=== PATIENT | male | born 2005 | race American Indian/Alaskan Native ===

== ENCOUNTER 2024-09-21 21:28 | Emergency (ER) | payer SELFPAY ==
[~2024-09-21] VITALS: Ht 172.7 cm; Wt 55.0 kg
[2024-09-21 21:35] VITALS: O2SAT 100
[2024-09-21 21:41] VITALS: TEMP 37; O2SAT 100
[2024-09-21 23:01] VITALS: BP 107/59; PULSE 60; RESP 16
[2024-09-21] MEDS: KETOROLAC 30MG/ML VIAL IM ONE (23:01)
[2024-09-22] MEDS ORDERED: IBUP-2029 MT (00:43)
[2024-09-22] MEDS ORDERED: AMOX-494 MT (00:43)
== END 2024-09-22 00:53 | disposition home or self-care (01) ==
LOC: ER 21:28
DX: R68.84 Jaw pain (principal); L04.9 Acute lymphadenitis, unspecified
CPT/HCPCS: 99283; 96372; J1885